=== PATIENT | male | born 1960 | race Caucasian/White ===

== ENCOUNTER 2022-02-14 07:28 | Inpatient (IN) | payer OTHER, BC ==
[2022-02-04 17:33] VITALS: BMI 31.8
[2022-02-14] MEDS ORDERED: DEXAMETHASONE SOD PHOSPHATE 10 MG/1 ML VIAL ONE (11:25)
[2022-02-14] MEDS ORDERED: BUPIVACAINE HCL/PF 0.5% (5 MG/ML) 30 ML VIAL IJ ONE (11:25)
[2022-02-14] MEDS ORDERED: MIDAZOLAM HCL 2 MG/2 ML SINGLE DOSE VIAL ONE ×3 (11:26→14:21)
[2022-02-14] MEDS ORDERED: FENTANYL CITRATE/PF 50 MCG/ML VIAL ONE (11:26)
[2022-02-14] MEDS ORDERED: BUPIVACAINE HCL 50 ML ONE (12:57)
[2022-02-14] MEDS ORDERED: PROPOFOL 60 ML ONE (13:19)
[2022-02-14] MEDS ORDERED: PROPOFOL 40 ML ONE (14:21)
[2022-02-14] MEDS ORDERED: TRANEXAMIC ACID 1000 MG/10 ML VIAL ONE (14:36)
[2022-02-14] MEDS ORDERED: VANCOMYCIN 1,000 MG VIAL (RESTRICTED TO ID ONLY) ONE (14:36)
[2022-02-14] MEDS ORDERED: DEXAMETHASONE SOD PHOSPHATE 4 MG/1 ML VIAL ONE (14:36)
[2022-02-14] MEDS ORDERED: KETOROLAC TROMETHAMINE 30 MG/1 ML VIAL ONE (14:36)
[2022-02-14] MEDS ORDERED: ONDANSETRON 4 MG/2 ML VIAL ONE (14:36)
[2022-02-14] MEDS ORDERED: ceFAZolin SODIUM 1 GM VIAL ONE (14:36)
[2022-02-14] MEDS ORDERED: ePHEDrine SULFATE 50 MG/1 ML AMPULE ONE (15:07)
[2022-02-14] MEDS ORDERED: PROPOFOL 20 ML ONE (15:35)
[2022-02-14] MEDS ORDERED: oxyCODONE HCL 5 MG TABLET PO PRN (15:51)
[2022-02-14] MEDS ORDERED: ACETAMINOPHEN 1000 MG/100 ML BAG IVPB ONE (15:51)
[2022-02-14] MEDS ORDERED: ONDANSETRON 4 MG/2 ML VIAL IVPUSH PRN ×2 (15:51→16:39)
[2022-02-14] MEDS ORDERED: ACETAMINOPHEN INJECTION 100 ML IVPB ONE (16:33)
[2022-02-14] MEDS ORDERED: MAGNESIUM HYDROX 2400MG/30ML ORAL SUSPENSION 30 ML CUP PO PRN (16:39)
[2022-02-14] MEDS ORDERED: MAG HYDROX/AL HYDROX/SIMETH 30 ML UNIT-DOSE CUP PO PRN (16:39)
[2022-02-14] MEDS ORDERED: LACTATED RINGERS SOLUTION 1,000 ML IV SCH (16:45)
[2022-02-14] MEDS: KETOROLAC TROMETHAMINE 30 MG/1 ML VIAL IVPUSH SCH (20:02)
[2022-02-14] MEDS: NICOTINE 7 MG/24 HOURS TOPICAL PATCH TD SCH (20:03)
[2022-02-14] MEDS: CEFAZOLIN SODIUM 2 GM in DEXTROSE 5%-WATER 100 ML IVPB SCH (20:03)
[2022-02-14] MEDS: LACTATED RINGERS SOLUTION 1,000 ML IV SCH (20:03)
[2022-02-14] MEDS: ASPIRIN 81 MG CHEWABLE TABLETS PO SCH (21:33)
[2022-02-14] MEDS: oxyCODONE HCL 10 MG SUSTAINED ACTING TABLET PO SCH (21:33)
[2022-02-14] MEDS: CELECOXIB 200 MG CAPSULE PO SCH (21:33)
[2022-02-14] MEDS: SENNOSIDES/DOCUSATE COMBO (SENNA PLUS) TABLET (UD) PO SCH (21:34)
[2022-02-14] MEDS: oxyCODONE HCL 5 MG TABLET PO PRN (21:35)
[2022-02-14] MEDS: ACETAMINOPHEN 500 MG TABLET (FP) PO SCH (23:53)
[2022-02-15] MEDS: oxyCODONE HCL 5 MG TABLET PO PRN ×4 (00:35→19:43)
[2022-02-15] MEDS: KETOROLAC TROMETHAMINE 30 MG/1 ML VIAL IVPUSH SCH (02:08)
[2022-02-15] MEDS: CEFAZOLIN SODIUM 2 GM in DEXTROSE 5%-WATER 100 ML IVPB SCH ×2 (02:08→08:46)
[2022-02-15] MEDS: ACETAMINOPHEN 500 MG TABLET (FP) PO SCH ×3 (05:45→17:33)
[2022-02-15] MEDS: ASPIRIN 81 MG CHEWABLE TABLETS PO SCH ×2 (10:04→21:21)
[2022-02-15] MEDS: NICOTINE 7 MG/24 HOURS TOPICAL PATCH TD SCH (10:05)
[2022-02-15] MEDS: SENNOSIDES/DOCUSATE COMBO (SENNA PLUS) TABLET (UD) PO SCH ×2 (10:05→21:21)
[2022-02-15] MEDS: PANTOPRAZOLE 40 MG TABLET PO SCH (10:05)
[2022-02-15] MEDS: CELECOXIB 200 MG CAPSULE PO SCH ×2 (10:05→21:21)
[2022-02-15] MEDS: oxyCODONE HCL 10 MG SUSTAINED ACTING TABLET PO SCH ×2 (10:05→21:21)
[2022-02-15 11:44] LABS: CALCIUM 9.3 mg/dl (8.5-10); CREATININE 0.7 mg/dl (0.55-1.3)
[2022-02-15 11:49] LABS: HEMATOCRIT 33.3 % (35.4-49); HEMOGLOBIN 11.5 G/dL (11.7-16.9); MCH 30.8 pg (25.7-33.7); MCHC 34.7 g/dl (32.0-35.9); MEAN CELL VOLUME 88.9 fl (80-96); MEAN PLT VOLUME 7.2 fl (7.5-11.1); PLATELET COUNT 279.1 10^3/uL (134-434); RBC 3.75 10^6/uL (4.00-5.60); RDW 13.9 % (11.9-15.9); WHITE BLOOD COUNT 18.7 10^3/uL (4.0-10.8)
[2022-02-15 12:26] LABS: HEMATOCRIT 34.8 % (35.4-49); HEMOGLOBIN 11.8 G/dL (11.7-16.9); MCH 30.1 pg (25.7-33.7); MCHC 33.8 g/dl (32.0-35.9); MEAN CELL VOLUME 89.1 fl (80-96); MEAN PLT VOLUME 7.1 fl (7.5-11.1); PLATELET COUNT 295.8 10^3/uL (134-434); RBC 3.91 10^6/uL (4.00-5.60); RDW 14.2 % (11.9-15.9); WHITE BLOOD COUNT 23.6 10^3/uL (4.0-10.8)
[2022-02-15 12:31] LABS: ALBUMIN 3.2 g/dl (3.4-5.0); BILIRUBIN,TOTAL 0.4 mg/dl (0.2-1); CALCIUM 9.8 mg/dl (8.5-10); CREATININE 0.7 mg/dl (0.55-1.3); TOT PROT 5.8 g/dl (6.4-8.2)
[2022-02-16] MEDS: ACETAMINOPHEN 500 MG TABLET (FP) PO SCH ×4 (06:23→20:57)
[2022-02-16 09:03] LABS: ALBUMIN 2.7 g/dl (3.4-5.0); BILIRUBIN,TOTAL 0.3 mg/dl (0.2-1); CALCIUM 8.6 mg/dl (8.5-10); CREATININE 0.6 mg/dl (0.55-1.3); TOT PROT 4.9 g/dl (6.4-8.2)
[2022-02-16 09:31] LABS: HEMATOCRIT 28.6 % (35.4-49); HEMOGLOBIN 9.7 G/dL (11.7-16.9); MCH 30.4 pg (25.7-33.7); MCHC 33.7 g/dl (32.0-35.9); MEAN CELL VOLUME 90.2 fl (80-96); MEAN PLT VOLUME 7.5 fl (7.5-11.1); PLATELET COUNT 251.1 10^3/uL (134-434); RBC 3.17 10^6/uL (4.00-5.60); RDW 14.1 % (11.9-15.9); WHITE BLOOD COUNT 14.8 10^3/uL (4.0-10.8)
[2022-02-16] MEDS: CELECOXIB 200 MG CAPSULE PO SCH ×2 (10:28→22:42)
[2022-02-16] MEDS: NICOTINE 7 MG/24 HOURS TOPICAL PATCH TD SCH (10:28)
[2022-02-16] MEDS: SENNOSIDES/DOCUSATE COMBO (SENNA PLUS) TABLET (UD) PO SCH ×2 (10:28→22:42)
[2022-02-16] MEDS: ASPIRIN 81 MG CHEWABLE TABLETS PO SCH ×2 (10:28→22:42)
[2022-02-16] MEDS: PANTOPRAZOLE 40 MG TABLET PO SCH (10:28)
[2022-02-16] MEDS: oxyCODONE HCL 10 MG SUSTAINED ACTING TABLET PO SCH (13:44)
[2022-02-16] MEDS: LACTATED RINGERS SOLUTION 1,000 ML IV SCH (23:52)
[2022-02-17] MEDS: oxyCODONE HCL 10 MG SUSTAINED ACTING TABLET PO SCH (00:12)
[2022-02-17 01:51] VITALS: RESP 18
[2022-02-17] MEDS: ACETAMINOPHEN 500 MG TABLET (FP) PO SCH (06:34)
[2022-02-17 06:38] VITALS: BP 110/64; PULSE 67; TEMP 98.4
== END 2022-02-17 09:19 | disposition home or self-care (01) | DRG 470 ==
LOC: FM/S 07:28
PROVIDERS: ADMIT Orthopaedic Surgery Orthopaedic Surgery of the Spine; ATTEND Orthopaedic Surgery Orthopaedic Surgery of the Spine
PROC: 0SRB0JA Replacement of Left Hip Joint with Synthetic Substitute, Uncemented, Open Approach (ICD-10-PCS; principal; 2022-02-14 13:46)
DX: M16.12 Unilateral primary osteoarthritis, left hip (principal); L40.50 Arthropathic psoriasis, unspecified; F17.210 Nicotine dependence, cigarettes, uncomplicated; J44.9 Chronic obstructive pulmonary disease, unspecified; F41.8 Other specified anxiety disorders
CPT/HCPCS: 36415; 73502-TC-LT-FY; 80048; 80053; 85027; 88305-TC; 88311-TC; 93005; 93010; 94760; 97010-GP; 97116-GP; 97162-GP; C1776; C1889; C9803-CS; J1100; U0003; U0005